=== PATIENT | male | born 1950 | race Caucasian/White ===

== ENCOUNTER 2021-02-24 13:51 | Emergency (ER) | payer MEDICARE, OTHER ==
[2021-02-24] MEDS ORDERED: SODIUM CHLORIDE 0.9% 1,000 ML IV ONE (17:24)
--- NOTE | 2021-02-24 17:34 | ED ---
Fever HPI - General Chief Complaint: Fever Stated Complaint: Covid + Source: patient, family, RN notes reviewed Mode of arrival: wheelchair Limitations: no limitations - History of Present Illness Initial Comments: This is a 70-year-old male presents emergency from with chief complaint of cough congestion. Patient states his been sick for about a days or so. Patient states that multiple family members have COVID-19. Patient states that his came concerned as he was been eating and drinking less. He has a nonproductive cough is not feels short of breath at rest or exertional symptoms no chest pain he developed a fever again which made them present emergency department. Patient has no leg pain no leg swelling. Patient does not take any current medications. - Related Data Allergies Allergy/AdvReac Type Severity Reaction Status Date / Time Penicillins AdvReac Rash/Hives Verified 02/24/21 14:45 Review of Systems ROS Statement: Those systems with pertinent positive or pertinent negative responses have been documented in the HPI. ROS Other: All systems not noted in ROS Statement are negative. Past Medical History Past Medical History: No Reported History History of Any Multi-Drug Resistant Organisms: None Reported Past Surgical History: No Surgical Hx Reported Past Psychological History: No Psychological Hx Reported Smoking Status: Current every day smoker Past Alcohol Use History: Daily Past Drug Use History: None Reported General Exam Limitations: no limitations General appearance: alert, in no apparent distress Head exam: Present: atraumatic, normocephalic, normal inspection Eye exam: Present: normal appearance, PERRL, EOMI. Absent: scleral icterus, conjunctival injection, periorbital swelling ENT exam: Present: normal exam, normal oropharynx, mucous membranes moist Neck exam: Present: normal inspection, full ROM. Absent: tenderness, meningismus, lymphadenopathy Respiratory exam: Present: normal lung sounds bilaterally. Absent: respiratory distress, wheezes, rales, rhonchi, stridor Cardiovascular Exam: Present: regular rate, normal rhythm, normal heart sounds. Absent: systolic murmur, diastolic murmur, rubs, gallop, clicks Neurological exam: Present: alert, oriented X3 Skin exam: Present: warm, dry, intact, normal color. Absent: rash Course Vital Signs 02/24/21 14:45 Temperature 99.5 F Pulse Rate 79 Respiratory 18 Rate Blood Pressure 113/61 O2 Sat by Pulse 91 L Oximetry Medical Decision Making - Medical Decision Making Patient is father for COVID-19 patient did receive monoclonal antibodies. Patient pulse ox is 91to 93%. Patient will return for any worsening change in symptoms. - Lab Data Lab Results 02/24/21 Range/Units 14:52 Coronavirus (PCR) Detected A (Not Detectd) Disposition Clinical Impression: COVID-19 Disposition: HOME SELF-CARE Condition: Stable Instructions (If sedation given, give patient instructions): Coronavirus Disease 2019 (COVID-19) Additional Instructions: Please return to the Emergency Department if symptoms worsen or any other concerns. Is patient prescribed a controlled substance at d/c from ED?: No Referrals: None,Stated [Primary Care Provider] - 1-2 days Time of Disposition: 17:33
[2021-02-24] MEDS ORDERED: SODIUM CHLORIDE 0.9% 50 ML IVPB ONE (17:45)
[2021-02-24] MEDS ORDERED: BAMLANIVIMAB (EUA) 700 MG, ETESEVIMAB (EUA) 1,400 MG in SODIUM CHLORIDE 0.9% 50 ML IVPB ONE (17:45)
--- NOTE | 2021-02-24 18:10 | XR ---
EXAMINATION TYPE: XR chest 2V DATE OF EXAM: 02/24/2021 CLINICAL HISTORY: sob. TECHNIQUE: Frontal and lateral view of the chest. COMPARISON: None FINDINGS: The cardiomediastinal silhouette is within normal limits for size. Pulmonary vasculature i s normal. There are patchy airspace opacities of the left lower lobe, right middle lobe, and cannot e xclude the right lower lobe. No pleural effusion. No pneumothorax seen. No acute displaced osseous f racture. IMPRESSION: Multilobar patchy focal airspace opacities likely represent pneumonia. Recommend follow-up to fernanda darling.
[2021-02-24] MEDS ORDERED: DEXAMETHASONE SOD PHOSPHATE 10 MG/ML 1 ML VIAL IVP STA (18:12)
[2021-02-24 20:33] VITALS: BP 114/68; PULSE 63; RESP 16; TEMP 98.2
== END 2021-02-24 20:33 | disposition home or self-care (01) ==
LOC: EC 13:51
DX: U07.1 COVID-19 (principal); F17.200 Nicotine dependence, unspecified, uncomplicated; Z88.0 Allergy status to penicillin
CPT/HCPCS: 99283; 96374; 96361; 87635; 71046; J1100; J3490